=== PATIENT | female | born 1955 | race Caucasian/White ===

== ENCOUNTER 2017-09-11 17:09 | Observation (INO) | payer OTHER ==
[~2017-09-11] VITALS: Ht 165.1 cm; Wt 57.3 kg
[2017-09-11 17:36] LABS: HEMATOCRIT 40.1 % (36.0-46.0); HEMOGLOBIN 12.8 G/DL (11.9-15.5); MCH 28.1 PG (29.0-34.0); MCHC 31.9 G/DL (30.0-36.0); MCV 88.1 FL (83-99); PLATELET COUNT 190 K/uL (156-360); RBC DIS.WIDTH-CV 13.9 % (11.8-14.6); RBC DIS.WIDTH-SD 44.8 % (39-53); RED BLOOD COUNT 4.55 M/uL (3.80-5.20); WHITE BLOOD COUNT 6.8 K/uL (4.1-10.2)
[2017-09-11 17:50] LABS: CHLORIDE 106 mEq/L (99-109); POTASSIUM 4.7 mEq/L (3.7-5.4); SODIUM 141 mEq/L (136-147)
[2017-09-11 17:51] LABS: GLUCOSE 116 mg/dL (70-99)
[2017-09-11 17:55] LABS: CREATININE 1.3 mg/dL (0.6-1.3); GFR ESTIMATE (CALCULATED) 44 mL/min/
[2017-09-11 17:56] LABS: UREA NITROGEN (BUN) 19 mg/dL (9-23)
[2017-09-11 17:59] LABS: TROP-I INTERPRETATION NEGATIVE; TROPONIN-I < 0.01 ng/mL (0.0-0.30)
[2017-09-11] MEDS ORDERED: LEVOTHYROXINE75 MCG PO (19:41)
[2017-09-11] MEDS ORDERED: MELOXICAM15 MG PO (19:42)
[2017-09-11] MEDS ORDERED: OMEPRAZOLE20 MG PO (19:42)
[2017-09-11] MEDS ORDERED: PRAVASTATIN SOD20 MG PO (19:45)
[2017-09-11] MEDS ORDERED: GLUCOSAMINE/1 TABLET PO (19:49)
[2017-09-11] MEDS ORDERED: TURMERIC 500 M1 EACH PO (19:52)
[2017-09-11] MEDS ORDERED: PROBIOTIC1 EAC2 PO (19:53)
[2017-09-11] MEDS ORDERED: FIBER0.4 GM PO (19:57)
[2017-09-11] MEDS ORDERED: MUCINEX D ER T1 EACH PO (19:58)
[2017-09-11] MEDS ORDERED: ZYRTEC-D1 TABLE1 PO (19:59)
[2017-09-11] MEDS ORDERED: MUCINEX600 MG PO (20:01)
[2017-09-11] MEDS ORDERED: MAGNESIUM250 MG PO (20:02)
[2017-09-11] MEDS ORDERED: LO-DOSE ASPIRIN81 M2 PO (20:02)
[2017-09-11] MEDS ORDERED: CALCIUM 500-VI1 EAC1 PO (20:06)
[2017-09-11] MEDS ORDERED: SYNTHROID75 MCG PO (20:17)
[2017-09-11 20:39] LABS: MAGNESIUM 2.4 mg/dL (1.3-2.7)
[2017-09-11 22:25] VITALS: BP 154/77
[2017-09-11 22:46] LABS: THYROTROPIN (TSH) 0.35 MIU/L (0.4-5.5)
[2017-09-12 00:44] LABS: TROP-I INTERPRETATION NEGATIVE; TROPONIN-I < 0.01 ng/mL (0.0-0.30)
[2017-09-12 04:00] VITALS: BP 142/72
[2017-09-12 05:28] LABS: TROP-I INTERPRETATION NEGATIVE; TROPONIN-I < 0.01 ng/mL (0.0-0.30)
[2017-09-12 09:15] VITALS: BP 157/81
[2017-09-12 11:20] VITALS: BP 129/61
[2017-09-12] MEDS ORDERED: LEVOTHYROXINE75 MCG PO (12:53)
== END 2017-09-12 15:00 | disposition home or self-care (01) ==
LOC: EME 17:09 → EDOF 20:10 → ENRESERV 20:13 → 5WEST 22:15 → ENPENDDIS 09-12 12:57 → 5WEST 09-12 15:00
PROVIDERS: Physician Assistant
DX: R00.2 Palpitations (principal); I34.1 Nonrheumatic mitral (valve) prolapse; Z85.850 Personal history of malignant neoplasm of thyroid; E89.0 Postprocedural hypothyroidism; E78.5 Hyperlipidemia, unspecified; K21.9 Gastro-esophageal reflux disease without esophagitis; Z79.82 Long term (current) use of aspirin; Z82.49 Family history of ischemic heart disease and other diseases of the circulatory system; Z88.2 Allergy status to sulfonamides; Z88.5 Allergy status to narcotic agent; Z88.8 Allergy status to other drugs, medicaments and biological substances
CPT/HCPCS: 71046; 80048; 83735; 84439; 84443; 84484; 85027; 87641; 93005; 99281; 99284; G0378; J1644; J7030